=== PATIENT | male | born 1980 | race Two or more races ===

== ENCOUNTER 2023-08-08 09:47 | Emergency (ER) | payer MEDICAID ==
[~2023-08-08] VITALS: Ht 180.3 cm; Wt 85.1 kg
[2023-08-08 10:02] VITALS: BP 138/86; PULSE 94; RESP 18; TEMP 97.5; O2SAT 98
[2023-08-08] MEDS ORDERED: KETOROLAC TROMETH 60MG/2ML VIAL IM ONE (10:45)
[2023-08-08] MEDS ORDERED: METH-1182 PO (11:22)
[2023-08-08] MEDS ORDERED: IBUP-1456 PO (11:22)
== END 2023-08-08 11:30 | disposition home or self-care (01) ==
LOC: ER 09:47
DX: M54.42 Lumbago with sciatica, left side (principal)
CPT/HCPCS: 72100; 96372; 99283; J1885

== ENCOUNTER 2023-08-19 13:04 | Emergency (ER) | payer MEDICAID ==
[~2023-08-19] VITALS: Ht 177.8 cm; Wt 86.9 kg
[~2023-08-19 13:04] MED LIST: IBUP-1456 PO; METH-1182 PO
[2023-08-19 15:08] VITALS: BP 123/69; PULSE 62; RESP 18; TEMP 97.5; O2SAT 97
[2023-08-19] MEDS ORDERED: ACE3T PO (16:05)
== END 2023-08-19 16:06 | disposition home or self-care (01) ==
LOC: ER 13:04
DX: M54.16 Radiculopathy, lumbar region (principal); X50.1XXA Overexertion from prolonged static or awkward postures, initial encounter; Y93.01 Activity, walking, marching and hiking; Y92.89 Other specified places as the place of occurrence of the external cause; Y99.8 Other external cause status